=== PATIENT | male | born 1960 | race Caucasian/White ===

== ENCOUNTER → 2016-03-10 | Outpatient (CLI) | payer BC ==
[~2016-03-10] MED LIST: ATOR-22 PO; BUPR-79 PO; FLUO20CA35 PO; INSDGI SC; LAMO100T16 PO; LISI-725 PO; NVLGI SC
[2016-03-10 18:54] LABS: BLOOD UREA NITROGEN 19 mg/dl (7-18); BUN/CREATININE RATIO 15.5 (10-20)
== END | disposition home or self-care (01) ==
LOC: C.LAB 17:45
PROVIDERS: ATTEND Urology
DX: N32.0 Bladder-neck obstruction (principal); R33.9 Retention of urine, unspecified

== ENCOUNTER → 2016-04-12 | Outpatient (CLI) | payer BC ==
[2016-04-12 15:27] LABS: CHOLESTEROL/HDL RATIO 2.6; THYROID STIMULATING HORMONE 1.51 uIu/ml (0.300-4.500)
[2016-04-12 15:33] LABS: RATIO 10.6 mcg/mg (0-30.0)
[2016-04-13 07:28] LABS: ESTIMATED AVERAGE GLUCOSE 183 mg/dl; HA1C FLAG Normal (Normal)
== END | disposition home or self-care (01) ==
LOC: C.LAB1850 13:52
PROVIDERS: ATTEND Internal Medicine Endocrinology, Diabetes & Metabolism
DX: E10.649 Type 1 diabetes mellitus with hypoglycemia without coma (principal); E10.21 Type 1 diabetes mellitus with diabetic nephropathy; E10.43 Type 1 diabetes mellitus with diabetic autonomic (poly)neuropathy; E55.9 Vitamin D deficiency, unspecified

== ENCOUNTER → 2016-08-30 | Outpatient (CLI) | payer BC ==
--- NOTE | 2016-08-30 11:01 | DIAGNOSTIC IMAGING REPORT ---
RENAL ULTRASOUND/COMPLETE RETROPERITONEUM CLINICAL HISTORY: 56 year-old Male presenting with urinary retention and bladder outflow obstruction. TECHNIQUE: Real-time herrera scale with limited color Doppler ultrasound imaging of the kidneys and bladder was performed. COMPARISON: Abdominal ultrasound from 06/14/2015. FINDINGS: Right kidney: Normal echogenicity and size. The right kidney measures 10.8 cm. No hydronephrosis. Normal color Doppler flow within the renal parenchyma. Left kidney: Normal echogenicity and size. The left kidney measures 10.8 cm a well-defined 3.8 x 3.8 x 4.3 cm anechoic lesion is noted at the interpolar region of the left kidney. A single thin septation may be present (Bosniak 2). No hydronephrosis. Normal color Doppler flow within the renal parenchyma. Bladder: Bladder wall thickening. Bladder is distended with a prevoid volume of 336 mL. Abnormal post void residual volume of 218 mL. No ureteral jets demonstrated, however, no dilated distal ureters visualized. IMPRESSION: 1. Bladder wall thickening with an abnormal post void residual consistent with chronic outlet obstruction. 2. No hydronephrosis or hydroureter. Electronically signed by: Macario Castorena 08/30/2016 9:37 AM Dictated Date/Time: 08/30/2016 9:31 AM
== END | disposition home or self-care (01) ==
LOC: C.ULTR 08:40
PROVIDERS: ATTEND Urology
DX: N32.0 Bladder-neck obstruction (principal); R33.9 Retention of urine, unspecified

== ENCOUNTER → 2017-07-01 | Outpatient (CLI) | payer OTHER ==
[2017-07-01 15:46] LABS: BLOOD UREA NITROGEN 16 mg/dl (7-18); CREATININE 1.19 mg/dl (0.60-1.40)
== END | disposition home or self-care (01) ==
LOC: C.LAB 14:26
PROVIDERS: ATTEND Urology
DX: R33.9 Retention of urine, unspecified (principal)